=== PATIENT | female | born 1945 | race Caucasian/White ===

== ENCOUNTER 2019-03-21 22:59 | Emergency (ER) | payer OTHER, MEDICAID ==
[~2019-03-21] VITALS: Ht 152.4 cm; Wt 76.8 kg
[2019-03-21 23:06] VITALS: BP 139/74
--- NOTE | 2019-03-21 23:09 | NUR ---
TO LOBBY A/W BED AMBULATORY
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
[2019-03-22] MEDS ORDERED: IBUPROFEN 400 MG TAB PO ONE (00:50)
[2019-03-22] MEDS ORDERED: CYCLOBENZAPRINE 10 MG TAB PO ONE (00:50)
[2019-03-22 01:55] VITALS: BP 141/71
== END 2019-03-22 01:55 | disposition home or self-care (01) ==
LOC: MED 22:59
DX: S39.012A Strain of muscle, fascia and tendon of lower back, initial encounter (principal); M54.41 Lumbago with sciatica, right side; E11.9 Type 2 diabetes mellitus without complications; X58.XXXA Exposure to other specified factors, initial encounter; Y93.89 Activity, other specified; Y92.89 Other specified places as the place of occurrence of the external cause; Y99.8 Other external cause status
CPT/HCPCS: 99283